=== PATIENT | female | born 1960 | race Caucasian/White ===

== ENCOUNTER 2025-01-18 08:10 | Day surgery (SDC) | payer OTHER ==
[2025-01-13 15:09] VITALS: BMI 33.8
[~2025-01-18 08:10] MED LIST: HYDROmorphone 0.5 MG/0.5 ML SYRINGE IVP PRN; Pre Op ABX Message 1 EACH MISC MISCELLANE ONE
[2025-01-18 08:51] VITALS: TEMP 97
[2025-01-18] MEDS: ACETAMINOPHEN TAB 500 MG TAB PO PRN (09:03)
[2025-01-18 09:13] LABS: Glucose,Whole Blood 189 mg/dL (70-110)
--- NOTE | 2025-01-18 09:13 | P.GSHP ---
History of Present Illness H&P Date: 01/18/25 Chief Complaint: History of pancreatic cancer This a 64-year-old female who has a recent diagnosis of pancreatic cancer. Patient presents today for Port-A-Cath placement. 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 Reports toenail fungus and rash on right breast and left thigh for last 2-3 yrs. History of Any Multi-Drug Resistant Organisms: None Reported Past Surgical History: Tonsillectomy Additional Past Surgical History / Comment(s): Failed attempt to remove mass on pancreas 11-30-24 due to the extent of spread at [facility], ganglion cyst removed. Past Anesthesia/Blood Transfusion Reactions: Previous Problems w/ Anesthesia, Postoperative Nausea & Vomiting (PONV) Additional Past Anesthesia/Blood Transfusion Reaction / Comment(s): Low BP with attempt to remove pancreas tumor in November 2024 @ [facility] in [place] was put into ICU for a few hours. No hx blood transfusions. Smoking Status: Current every day smoker - Past Family History Mother Family Medical History: No Reported History Medications and Allergies Home Medications Medication Instructions Recorded Confirmed Type ALPRAZolam [Xanax] 0.25 mg PO TID PRN 01/06/25 01/18/25 History INSULIN LISPRO (humaLOG) [humaLOG] 0 units SQ AC-TID PRN 01/06/25 01/18/25 History Insulin Glargine,Hum.rec.anlog 12 units SQ HS 01/06/25 01/18/25 History [Lantus Solostar Pen] Insulin Lispro [humaLOG Kwikpen] 4 unit SQ AC-TID 01/06/25 01/18/25 History Omeprazole [PriLOSEC] 20 mg PO AC-BRKFST 01/06/25 01/18/25 History Allergies Allergy/AdvReac Type Severity Reaction Status Date / Time sulfamethoxazole Allergy severe Verified 01/18/25 08:53 Nausea & Vomiting foam trimethoprim [From Bactrim] Allergy severe Verified 01/18/25 08:53 Nausea & Vomiting foam codeine AdvReac Nausea & Verified 01/18/25 08:53 Vomiting,diaphoretic Surgical - Exam Vital Signs Temp Pulse Resp BP Pulse Ox 97.0 F L 68 18 129/83 99 01/18/25 08:50 01/18/25 08:50 01/18/25 08:50 01/18/25 08:50 01/18/25 08:50 - General well developed, well nourished, no distress - Eyes PERRL - ENT normal pinna - Neck no masses - Respiratory normal expansion - Cardiovascular Rhythm: regular - Abdomen Abdomen: soft, non tender Assessment and Plan Assessment: His history of pancreatic cancer. Will perform Port-A-Cath placement.
[2025-01-18] MEDS: LACTATED RINGERS 1,000 ML IV SCH (09:15)
[2025-01-18] MEDS: HEPARIN SODIUM,PORCINE 5,000 UNIT/ML 1 ML VIAL SQ PRN (09:16)
[2025-01-18] MEDS: ONDANSETRON 4 MG/2 ML VIAL IVP STA (09:18)
[2025-01-18] MEDS: DEXAMETHASONE SOD PHOSPHATE 4 MG/ML 1 ML VIAL IVP STA (09:19)
[2025-01-18] MEDS: IV FLUID CONTINUATION 1,000 ML IV ONE (09:21)
[2025-01-18] MEDS ORDERED: LIDOCAINE 1% INJ 10MG/ML (20 ML MDV) ONE (09:23)
[2025-01-18] MEDS ORDERED: fentaNYL (PF) 50 MCG/ML 2 ML AMP ONE (09:23)
[2025-01-18] MEDS ORDERED: PHENYLEPHRINE-0.9% NACL SYG 1,000 MCG/10 ML SYRINGE ONE (09:23)
[2025-01-18] MEDS ORDERED: PROPOFOL 10 MG/ML 20 ML VIAL IV ONE (09:23)
[2025-01-18] MEDS ORDERED: MIDAZOLAM 2 MG/2 ML VIAL ONE (09:23)
[2025-01-18] MEDS: IV FLUID CONTINUATION 1,000 ML with ceFAZolin 2,000 MG IV ONE (09:25)
[2025-01-18] MEDS: BUPIVACAINE (PF) 0.5% 30 ML VIAL SQ ONE (09:47)
--- NOTE | 2025-01-18 10:09 | P.OP ---
Date of Procedure: 01/18/25 Preoperative Diagnosis: Ri pancreatic cancer Postoperative Diagnosis: Pancreatic cancer Procedure(s) Performed: Right subclavian Port-A-Cath Anesthesia: MAC Surgeon: Ervin Mahmood Pathology: none sent Condition: stable Disposition: PACU Description of Procedure: M the patient was placed on the operating table in the supine position. The patient received IV sedation. The patient's chest was prepped and draped in the usual sterile fashion. A roll had been placed between the shoulder blades in a longitudinal fashion. After prepping and draping the skin was anesthetized 1% local Xylocaine. And then using the Seldinger technique the subclavian vein was cannulated. A wire was placed into the vein and fluoroscopy position the wire at the atrial caval junction. Next the dilator sheath was placed over top the wire and the wire was withdrawn. The catheter was positioned at the atriocaval position. The catheter was placed through the sheath after the dilator was withdrawn. The sheath was then withdrawn. Position of the catheter was confirmed with fluoroscopy. The Port-A-Cath was connected to the catheter. The Port-A-Cath was flushed with saline and then heparinized saline. The skin was closed interrupted 3-0 Monocryl suture. Dermabond was applied. Patient tolerated procedure well and was sent to recovery room stable condition.
[2025-01-18 10:11] VITALS: RESP 16
[2025-01-18 10:38] VITALS: BP 107/70; PULSE 63
--- NOTE | 2025-01-18 10:39 | XR ---
EXAMINATION TYPE: XR chest 1V portable DATE OF EXAM: 01/18/2025 10:26 AM COMPARISON: None CLINICAL INDICATION: Female, 64 years old with history of Right subclavian Port-A-Cath, , FINDINGS: Right anterior chest wall injection port with subclavian access and catheter tip at the mid to lower SVC. Heart mildly enlarged. Some hazy density at the medial right hemidiaphragm probably relating to epicardial fat pad. No consolidation or pleural effusion. Slight kinking of the catheter after crossi ng between the first rib and clavicle. No appreciable pneumothorax. IMPRESSION: 1. Right anterior chest wall injection port with catheter tip at the mid to lower SVC. Slight kinking of the catheter as it crosses the clavicle and first rib. 2. Mild cardiomegaly. [facility], , 01/18/2025 10:37 AM
--- NOTE | 2025-01-18 11:00 | FL ---
EXAMINATION TYPE: FL guided central line placemt DATE OF EXAM: 01/18/2025 FLUOROSCOPY RT. SUBCLAVIAN PORT A CATH. FL TIME: 18 SECONDS DAP: [id number] DR. ROSENBERG 2 images are provided. [facility], Workstation: [facility], 01/18/2025 10:58 AM
== END 2025-01-18 11:31 | disposition home or self-care (01) ==
LOC: OR 08:10
PROVIDERS: ATTEND Surgery
DX: C25.9 Malignant neoplasm of pancreas, unspecified (principal); K21.9 Gastro-esophageal reflux disease without esophagitis; E11.9 Type 2 diabetes mellitus without complications; F17.210 Nicotine dependence, cigarettes, uncomplicated; F41.9 Anxiety disorder, unspecified; Z90.89 Acquired absence of other organs; Z45.2 Encounter for adjustment and management of vascular access device; Z88.2 Allergy status to sulfonamides; Z88.1 Allergy status to other antibiotic agents; Z88.5 Allergy status to narcotic agent; Z79.4 Long term (current) use of insulin; Z79.899 Other long term (current) drug therapy
CPT/HCPCS: 77001; 71045; 36561; C1788; J2250; J1644; J1100; J2405; J0690; J2003; J3010; J1642; J2704; J2371; J0665